=== PATIENT | female | born 1990 | race Caucasian/White ===

== ENCOUNTER 2021-02-18 17:23 | Emergency (ER) | payer OTHER ==
[~2021-02-18] VITALS: Ht 154.9 cm; Wt 71.0 kg
[2021-02-18] MEDS ORDERED: SUMATRIPTAN SUCCINATE 6MG/0.5ML VIAL SUBCUT ONE (19:15)
[2021-02-18] MEDS ORDERED: IMIT50 MT (21:02)
[2021-02-18] MEDS ORDERED: NAPR-1164 MT (21:02)
[2021-02-18] MEDS ORDERED: TRAMADOL 50MG TABLET PO ONE (21:15)
[2021-02-18] MEDS ORDERED: ACETAMINOPHEN 500MG TABLET PO ONE (21:15)
[2021-02-18 22:40] VITALS: BP 125/62
== END 2021-02-18 23:00 | disposition home or self-care (01) ==
LOC: ER 17:23
DX: G43.909 Migraine, unspecified, not intractable, without status migrainosus (principal)
CPT/HCPCS: 70450; 81025; 96372; 99284; J3030